=== PATIENT | female | born 1975 | race Two or more races ===

== ENCOUNTER → 2024-09-21 08:01 | Outpatient (CLI) | payer OTHER ==
[~2024-09-21] VITALS: Ht 157.5 cm; Wt 63.5 kg
[2024-09-21 07:55] VITALS: BP 134/84
[~2024-09-21 08:01] MED LIST: LARIN 1.5 MG-31 EACH; LEVO-T50 MCG PO
[2024-09-21 10:01] LABS: RH POSITIVE
== END | disposition home or self-care (01) ==
LOC: RAD 08:01 → OB/GYN 09-22 07:00 → EDSTATUS 09-22 08:00 → OB/GYN 09-22 08:00
PROVIDERS: ATTEND Student in an Organized Health Care Education/Training Program
DX: N93.9 Abnormal uterine and vaginal bleeding, unspecified (principal); D25.9 Leiomyoma of uterus, unspecified; R10.2 Pelvic and perineal pain

== ENCOUNTER 2024-09-21 12:26 | Inpatient (IN) | payer OTHER ==
[~2024-09-21] VITALS: Ht 144.8 cm; Wt 63.5 kg
--- NOTE | 2024-09-21 13:25 | NUR ---
SE RECIBE PTE ALERTA, ORIENTADA X3 Y AMBULANDO. PTE PRESENTA REFERIDO PARA TRANFUSION POR DRA. TIM MARTÍNEZ. HGT EN 8.4. SE MIDEN S/V Y SE UBICA.
[2024-09-21] MEDS ORDERED: 0.9 % SODIUM CHLORIDE 500 ML IV ONE (15:00)
[2024-09-21 15:51] LABS: BASO % 0.8 % (0.1-1.2); EOS # 0.07 (0.04-0.54); EOS % 0.8 % (0.7-7.0); LYMPH # 1.51 (1.18-3.74); LYMPH % 17.5 % (19.3-53.1); MEAN PLATELET VOLUME 10.50 fl (9.4-12.4); MONO # 1.01 (0.24-0.82); MONO % 11.7 % (4.7-12.5); NEUT # 5.96 (1.56-6.13); NEUT % 69.1 % (34.0-71.1); RED CELL DISTRIBUTION WIDTH 19.7 % (11.6-14.4)
--- NOTE | 2024-09-21 15:51 | NUR ---
MS HARLEY ORIENTA PTE SOBRE TX MEDICO EL CUAL REFIERE ENTENDER.SE LE EXTRAEN MUESTRAS BAJO MEDIDAS ASEPTICAS,SE CANALIZA Y SE COLOCAN FLUIDOS DE MANTENIMIENTO.SE DEBRA TUBOS PILOTOS PARA 2 UNIDADES DE PRBC Y SE CLAUDIA PERMISO DE TRANSUSION.
[2024-09-21 16:13] LABS: INR 0.99
[2024-09-21 16:18] LABS: ALT/SGPT 12.0 U/L (12-78); AST/SGOT 12.0 U/L (15-37); BILIRUBIN TOTAL 0.22 mg/dL (0.3-1.2); BUN CREA RATIO 13.0 (7.0-25.0); CREATININE SERUM 0.67 mg/dL (0.55-1.02); GFR 93.55; GLOBULINA 4.4 G/DL (2.4-3.5); GLUCOSE FASTING 84.0 mg/dL (65-100); OSMOLALITY SERUM 277.0 MOSM/KG (275-295)
[2024-09-21 16:21] LABS: COVID-19 AG NEGATIVE (NEGATIVE)
--- NOTE | 2024-09-21 16:27 | NUR ---
SE COLECTA MUESTRA PARA TIPO Y ISAAC, SE COMPLETA DOCUMENTO Y SE LLEVA AL LABORATORIO.
[2024-09-21 16:59] LABS: URINE APPEARANCE Cloudy; URINE BILIRRUBIN Small (NEGATIVE); URINE BLOOD Large; URINE COLOR Orange; URINE GLUCOSE Negative (NEGATIVE); URINE KETONE 15 (NEGATIVE); URINE LEUKOCYTE Small; URINE NITRATE Negative; URINE UROBILINOGEN 0.2 E.U./dl
[2024-09-21 17:00] LABS: URINE BACTERIA 116.3 uL (0.0-1933); URINE EPITHELIAL CELLS 20.4 uL (0.0-38.8); URINE WBC 175.8 uL (0.0-23.2)
[2024-09-21 17:17] LABS: URINE CAST 0.00 uL (0.0-1.40); URINE PROTEIN 100 (NEGATIVE); URINE RBC > 10558.9 uL (0.0-20.8)
[2024-09-21] MEDS ORDERED: ACETAMINOPHEN 500 MG GEL..CAP PO PRN (18:45)
[2024-09-21] MEDS ORDERED: AMINOCAPROIC ACID 20 MG/ML ML IV ONE (18:45)
[2024-09-21] MEDS ORDERED: 0.9 % SODIUM CHLORIDE 1,000 ML IV SCH (19:00)
[2024-09-22 03:24] VITALS: BP 143/83
[2024-09-22] MEDS ORDERED: LEVOTHYROXINE SODIUM 50 MCG TABLET PO SCH (06:00)
[2024-09-22] MEDS ORDERED: AMINOCAPROIC ACID 250 MG/ML VIAL IV NR (07:15)
[2024-09-22] MEDS ORDERED: FAMOTIDINE/PF 20 MG in 0.9 % SODIUM CHLORIDE 8 ML IV PUSH SCH (09:00)
[2024-09-22] MEDS ORDERED: IRON FUM,PS/FOLIC/BCOMP,C NO.9 1 CAP CAPSULE PO SCH (09:00)
[2024-09-22 09:34] VITALS: BP 116/67; O2SAT 100
[2024-09-22 17:23] VITALS: BP 131/79; O2SAT 100
[2024-09-23 02:29] VITALS: BP 119/70; O2SAT 95
[2024-09-23 03:08] LABS: BASO % 1.0 % (0.1-1.2); EOS # 0.39 (0.04-0.54); EOS % 4.3 % (0.7-7.0); LYMPH # 1.83 (1.18-3.74); LYMPH % 20.0 % (19.3-53.1); MEAN PLATELET VOLUME 10.60 fl (9.4-12.4); MONO # 1.01 (0.24-0.82); MONO % 11.0 % (4.7-12.5); NEUT # 5.83 (1.56-6.13); NEUT % 63.5 % (34.0-71.1); RED CELL DISTRIBUTION WIDTH 17.5 % (11.6-14.4)
[2024-09-23 09:11] VITALS: BP 135/79; O2SAT 98
[2024-09-23 17:40] VITALS: BP 124/74; O2SAT 97
[2024-09-24 02:37] VITALS: BP 106/63; O2SAT 96
[2024-09-24 07:00] VITALS: BP 120/70; O2SAT 98
[2024-09-24 08:27] LABS: BASO % 0.6 % (0.1-1.2); EOS # 0.32 (0.04-0.54); EOS % 3.3 % (0.7-7.0); LYMPH # 1.47 (1.18-3.74); LYMPH % 15.1 % (19.3-53.1); MEAN PLATELET VOLUME 10.80 fl (9.4-12.4); MONO # 0.83 (0.24-0.82); MONO % 8.5 % (4.7-12.5); NEUT # 7.05 (1.56-6.13); NEUT % 72.3 % (34.0-71.1); RED CELL DISTRIBUTION WIDTH 18.4 % (11.6-14.4)
[2024-09-24] MEDS ORDERED: GENTAMICIN SULFATE 40 MG/ML VIAL IV ONE (15:00)
[2024-09-24] MEDS ORDERED: CLINDAMYCIN PHOSPHATE 150 MG/ML (900mg) IV ONE (15:00)
[2024-09-24] MEDS ORDERED: METRONIDAZOLE/SODIUM CHLORIDE 500 MG/100 ML PIGGYBACK IV ONE (15:00)
[2024-09-24] MEDS ORDERED: VISTASEAL DUAL APPICATOR 1 EACH APPL TOP ONE (18:00)
[2024-09-24] MEDS ORDERED: THROMBIN,HU/FIBRINOGEN/CALCIUM 4 ML SYRINGE TOP ONE ×2 (18:00)
[2024-09-24] MEDS ORDERED: KETOROLAC TROMETHAMINE 30 MG VIAL IV SCH (19:57)
[2024-09-24] MEDS ORDERED: GABAPENTIN 300 MG CAPSULE PO SCH (19:58)
[2024-09-24] MEDS ORDERED: RINGERS SOLUTION,LACTATED 1,000 ML IV SCH (20:00)
[2024-09-25 02:32] VITALS: BP 123/69; O2SAT 95
[2024-09-25 06:40] LABS: BASO % 0.1 % (0.1-1.2); EOS # 0.02 (0.04-0.54); EOS % 0.1 % (0.7-7.0); LYMPH # 0.80 (1.18-3.74); LYMPH % 5.9 % (19.3-53.1); MEAN PLATELET VOLUME 10.90 fl (9.4-12.4); MONO # 0.86 (0.24-0.82); MONO % 6.3 % (4.7-12.5); NEUT # 11.94 (1.56-6.13); NEUT % 87.4 % (34.0-71.1); RED CELL DISTRIBUTION WIDTH 18.8 % (11.6-14.4)
[2024-09-25 09:37] VITALS: BP 123/70; O2SAT 98
== END 2024-09-25 11:58 | disposition home or self-care (01) | DRG 743 ==
LOC: ER 12:26 → MEDI 18:59
PROVIDERS: General Practice; ADMIT Student in an Organized Health Care Education/Training Program; ATTEND Student in an Organized Health Care Education/Training Program
PROC: 0UT94ZZ Resection of Uterus, Percutaneous Endoscopic Approach (ICD-10-PCS; principal; 2024-09-21)
PROC: 0TJB8ZZ Inspection of Bladder, Via Natural or Artificial Opening Endoscopic (ICD-10-PCS; 2024-09-21)
DX: D25.9 Leiomyoma of uterus, unspecified (principal); R10.2 Pelvic and perineal pain; N93.9 Abnormal uterine and vaginal bleeding, unspecified; D64.9 Anemia, unspecified; N80.203 Endometriosis of bilateral fallopian tubes, unspecified depth